=== PATIENT | male | born 1970 | race Caucasian/White ===

== ENCOUNTER 2020-04-25 16:02 | Emergency (ER) | payer BC ==
[~2020-04-25] VITALS: Ht 175.3 cm; Wt 96.2 kg
[2020-04-25 16:16] VITALS: BP 141/98; Ht 175.3 cm; Wt 96.2 kg
== END 2020-04-25 17:24 | disposition home or self-care (01) ==
LOC: ED 16:02
DX: H10.11 Acute atopic conjunctivitis, right eye (principal)